=== PATIENT | female | born 1975 ===

== ENCOUNTER 2018-02-08 04:21 | Emergency (ER) | payer MEDICAID, OTHER ==
[2018-02-08 04:22] VITALS: BMI 21.9
--- NOTE | 2018-02-08 05:44 | C.PDOC ---
History Of Present Illness 42 years old female presents to ED with complaints of diffuse abdominal pain. Patient states she feels her "abdomen is hard and full of diarrhea." Patient is a poor historian and she is not answering questions. Time Seen by Provider: 02/08/18 05:04 Chief Complaint (Nursing): Abdominal Pain History Per: Patient History/Exam Limitations: no limitations Onset/Duration Of Symptoms: Hrs Current Symptoms Are (Timing): Still Present Location Of Pain/Discomfort: Diffuse Radiation Of Pain To:: None Quality Of Discomfort: "Pain" Associated Symptoms: denies: Fever, Chills, Nausea, Vomiting, Diarrhea, Urinary Symptoms Exacerbating Factors: None Alleviating Factors: None Recent travel outside of the [place]: No Abnormal Vaginal Bleeding: No Past Medical History Reviewed: Historical Data, Nursing Documentation, Vital Signs Vital Signs: Last Vital Signs Temp 98.0 F 02/08/18 06:53 Pulse 75 02/08/18 06:53 Resp 19 02/08/18 06:53 BP 125/81 02/08/18 06:53 Pulse Ox 100 02/08/18 06:53 - Medical History PMH: Anxiety, Depression, HTN, Schizophrenia - [facility] Procedures GROUP PSYCHOTHERAPY (12/26/17) INDIVIDUAL PSYCHOTHERAPY, SUPPORTIVE (11/22/17) INTRODUCTION OF SERUM/TOX/VACCINE INTO MUSCLE, PERC APPROACH (11/22/17) Family History: States: Unknown Family Hx - Social History Hx Alcohol Use: No Hx Substance Use: No - Immunization History Hx Tetanus Toxoid Vaccination: No Hx Influenza Vaccination: No Hx Pneumococcal Vaccination: No Review Of Systems Except As Marked, All Systems Reviewed And Found Negative. Constitutional: Negative for: Fever, Chills Gastrointestinal: Positive for: Abdominal Pain. Negative for: Nausea, Vomiting , Diarrhea, Constipation Neurological: Negative for: Weakness, Numbness Physical Exam - Physical Exam Appears: Well, Non-toxic, No Acute Distress Skin: Normal Color, Warm, Dry, No Rash Head: Atraumatic, Normacephalic Eye(s): bilateral: Normal Inspection, PERRL, EOMI Oral Mucosa: Moist Throat: No Erythema, No Exudate Neck: Normal ROM, Supple Chest: Symmetrical, No Tenderness Cardiovascular: Rhythm Regular, No Friction Rub, No Murmur Respiratory: Normal Breath Sounds, No Decreased Breath Sounds, No Rales, No Rhonchi, No Wheezing Gastrointestinal/Abdominal: Soft, No Tenderness, No Distention, No Guarding, No Rebound Back: Normal Inspection, No CVA Tenderness Extremity: Normal ROM, No Tenderness, No Swelling Neurological/Psych: Oriented x3, Normal Speech, Normal Cognition, Normal Motor Gait: Steady ED Course And Treatment O2 Sat by Pulse Oximetry: 97 (RA) Pulse Ox Interpretation: Normal Medical Decision Making Medical Decision Making: Ordered Urine culture and Urinalysis. The patient is homeless and wants a place to sleep. On re-exam, the patient reports improvement of symptoms. Lungs are CTA, heart is RRR, abdomen is soft, non-tender and tolerating PO. Pt is Ambulatory in the ED with steady gait. Patient was taken home with another family member, Follow up with the medical doctor within 1-2 days. return if worsened. Disposition - Disposition Referrals: [facility] [Outside] Disposition: HOME/ ROUTINE Disposition Time: 06:31 Condition: GOOD Additional Instructions: Follow up with the medical doctor within 1-2 days, Return if worsened. Prescriptions: Cephalexin [Keflex] 500 mg PO BID #14 capsule Naproxen [Naprosyn] 500 mg PO BID #20 tab Instructions: Acute Abdomen (Belly Pain), Adult (DC) Forms: [employer] (Nepalese) - Clinical Impression Clinical Impression: Abdominal pain, UTI (urinary tract infection) - PA / ADMINISTRATIVE STAFF SUPERVISOR / Resident Statement MD/DO has reviewed & agrees with the documentation as recorded. - Scribe Statement The provider has reviewed the documentation as recorded by the Scribradha Hernandez All medical record entries made by the Ashlynibradha were at my direction and personally dictated by me. I have reviewed the chart and agree that the record accurately reflects my personal performance of the history, physical exam, medical decision making, and the department course for this patient. I have also personally directed, reviewed, and agree with the discharge instructions and disposition.
[2018-02-08 05:56] LABS: SQUAMOUS EPITHIAL 15 /hpf (0-5); URINE BACTERIA RARE (<OCC); URINE BILIRUBIN NEGATIVE (NEGATIVE); URINE BLOOD 1+ (NEGATIVE); URINE CLARITY Hazy (Clear); URINE COLOR Amber (YELLOW); URINE GLUCOSE (UA) NORMAL (Normal); URINE LEUKOCYTE ESTERASE 1+ Leu/uL (Negative); URINE PROTEIN 1+ mg/dL (NEGATIVE)
[2018-02-08 06:55] VITALS: BP 125/81; PULSE 75; RESP 19; TEMP 98
[2018-02-08 20:36] VITALS: O2SAT 97
== END 2018-02-08 07:03 | disposition home or self-care (01) ==
LOC: C.ER 04:21
DX: N39.0 Urinary tract infection, site not specified (principal); R10.84 Generalized abdominal pain

== ENCOUNTER 2018-02-10 15:13 | Emergency (ER) | payer MEDICAID, OTHER ==
[2018-02-10 15:13] VITALS: BMI 21.9
== END 2018-02-10 16:52 | disposition left against medical advice (07) ==
LOC: C.ER 15:13
DX: Z02.89 Encounter for other administrative examinations (principal); R10.9 Unspecified abdominal pain

== ENCOUNTER 2018-02-20 01:57 | Emergency (ER) | payer OTHER ==
[2018-02-20 01:57] VITALS: BMI 23.0
[2018-02-20 02:11] VITALS: O2SAT 98
--- NOTE | 2018-02-20 04:11 | C.PDOC ---
History Of Present Illness Patient is a 42 y/o female with PMHx schizophrenia, Depression, Anxiety, Homelessness presents to the ED with a complaint of insomnia for the last 3 months. Patient requests evaluation. Pt is non compliant to psychiatry follow up and has been seen previously for similar sx. Pt denies suicidal/ homicidal ideations. Denies any fever or chills. No other physical complaints at this time. Time Seen by Provider: 02/20/18 02:41 Chief Complaint (Nursing): Medical Clearance History Per: Patient History/Exam Limitations: no limitations Onset/Duration Of Symptoms: Days (3 months) Current Symptoms Are (Timing): Still Present Recent travel outside of the [place]: No Past Medical History Reviewed: Historical Data, Nursing Documentation, Vital Signs Vital Signs: Last Vital Signs Temp 98.4 F 02/20/18 02:09 Pulse 88 02/20/18 02:09 Resp 22 02/20/18 02:09 BP 104/65 02/20/18 02:09 Pulse Ox 98 02/20/18 04:12 - Medical History PMH: Anxiety, Depression, HTN, Schizophrenia Denies: Diabetes, Hepatitis, HIV, Chronic Kidney Disease, Seizures, Sexually Transmitted Disease Surgical History: No Surg Hx - [facility] Procedures GROUP PSYCHOTHERAPY (12/26/17) INDIVIDUAL PSYCHOTHERAPY, SUPPORTIVE (11/22/17) INTRODUCTION OF SERUM/TOX/VACCINE INTO MUSCLE, PERC APPROACH (11/22/17) Family History: States: No Known Family Hx - Social History Hx Tobacco Use: No Hx Alcohol Use: No Hx Substance Use: No - Immunization History Hx Tetanus Toxoid Vaccination: No Hx Influenza Vaccination: No Hx Pneumococcal Vaccination: No Review Of Systems Review Of Systems: ROS cannot be obtained secondary to pt's inabilty to answer questions. (patient is currently sleeping in ED, turning over to side when asked questions.) Physical Exam - Physical Exam Appears: Well, Non-toxic, No Acute Distress, Other (sleeping) Skin: Normal Color, Warm, Dry Head: Atraumatic, Normacephalic Eye(s): bilateral: Normal Inspection Oral Mucosa: Moist Chest: Symmetrical Cardiovascular: Rhythm Regular, No Murmur Respiratory: Normal Breath Sounds, No Rales, No Rhonchi, No Wheezing Extremity: Normal ROM (x4) Neurological/Psych: Oriented x3, Normal Speech, Normal Cognition ED Course And Treatment O2 Sat by Pulse Oximetry: 98 Pulse Ox Interpretation: Normal Progress Note: Patient has been sleeping soundly since arrival to ER, pt denies any suicidal / homicidal ideation. Pt' s complaints are not emergent at this time. Pt is to be discharged in AM, advised outpt psych follow up. Reevaluation Time: 05:24 Reassessment Condition: Improved Disposition Counseled Patient/Family Regarding: Diagnosis, Need For Followup, Rx Given - Disposition Referrals: [facility] [Outside] Disposition: HOME/ ROUTINE Disposition Time: 05:12 Condition: GOOD Instructions: Schizophrenia (DC) Forms: [employer] (Bahraini) - Clinical Impression Clinical Impression: Schizophrenia, Homeless - Scribe Statement The provider has reviewed the documentation as recorded by the Scribe Charley Damon All medical record entries made by the Scribe were at my direction and personally dictated by me. I have reviewed the chart and agree that the record accurately reflects my personal performance of the history, physical exam, medical decision making, and the department course for this patient. I have also personally directed, reviewed, and agree with the discharge instructions and disposition.
[2018-02-20 06:19] VITALS: BP 112/69; PULSE 81; RESP 20; TEMP 97.6
== END 2018-02-20 06:19 | disposition home or self-care (01) ==
LOC: C.ER 01:57
DX: F20.9 Schizophrenia, unspecified (principal); Z59.0 Homelessness; I10 Essential (primary) hypertension

== ENCOUNTER 2018-02-24 20:02 | Emergency (ER) | payer OTHER ==
[2018-02-24 20:02] VITALS: BMI 23.0
[2018-02-24 20:10] VITALS: BP 112/60; PULSE 92; RESP 20; TEMP 98.3; O2SAT 100
[2018-02-24] MEDS ORDERED: Alum-Mag Hydrox-Simethicone Susp (30 mL) PO STA (20:27)
[2018-02-24] MEDS ORDERED: Alum-Mag Hydrox-Simethicone Susp (30 mL) ONE (20:31)
--- NOTE | 2018-02-24 20:37 | C.PDOC ---
History Of Present Illness 42 year old female presents to the ED c/o constipation. Patient she did not have a bowel movement after using the enema but only liquid came out. Patient is also complaining of heart burn after eating greasy food today. Patient denies fever, chills, nausea, vomit, diarrhea, rash, back pain. Time Seen by Provider: 02/24/18 20:15 Chief Complaint (Nursing): GI Problem History Per: Patient History/Exam Limitations: no limitations Onset/Duration Of Symptoms: Days Current Symptoms Are (Timing): Still Present Recent travel outside of the [place]: No Additional History Per: Patient Past Medical History Reviewed: Historical Data, Nursing Documentation, Vital Signs Vital Signs: Last Vital Signs Temp 98.3 F 02/24/18 20:07 Pulse 92 H 02/24/18 20:07 Resp 20 02/24/18 21:01 BP 112/60 02/24/18 20:07 Pulse Ox 100 02/24/18 22:50 - Medical History PMH: Anxiety, Depression, HTN, Schizophrenia Denies: Diabetes, Hepatitis, HIV, Chronic Kidney Disease, Seizures, Sexually Transmitted Disease Surgical History: No Surg Hx - [facility] Procedures GROUP PSYCHOTHERAPY (12/26/17) INDIVIDUAL PSYCHOTHERAPY, SUPPORTIVE (11/22/17) INTRODUCTION OF SERUM/TOX/VACCINE INTO MUSCLE, PERC APPROACH (11/22/17) Family History: States: Unknown Family Hx - Social History Hx Tobacco Use: No Hx Alcohol Use: No Hx Substance Use: No - Immunization History Hx Tetanus Toxoid Vaccination: No Hx Influenza Vaccination: No Hx Pneumococcal Vaccination: No Review Of Systems Constitutional: Negative for: Fever, Chills Respiratory: Negative for: Shortness of Breath Gastrointestinal: Positive for: Abdominal Pain, Constipation Musculoskeletal: Negative for: Back Pain Skin: Negative for: Rash Neurological: Negative for: Weakness, Numbness Physical Exam - Physical Exam Appears: Non-toxic, No Acute Distress Skin: Normal Color, Warm, Dry Head: Atraumatic, Normacephalic Eye(s): bilateral: Normal Inspection Nose: No Discharge Oral Mucosa: Moist Neck: Normal ROM, Supple Chest: Symmetrical Gastrointestinal/Abdominal: Soft, No Tenderness, No Guarding, No Rebound Back: No CVA Tenderness Extremity: Normal ROM, No Tenderness, No Swelling Neurological/Psych: Oriented x3, Normal Motor, Normal Sensation Gait: Steady ED Course And Treatment O2 Sat by Pulse Oximetry: 100 (On RA) Pulse Ox Interpretation: Normal Progress Note: Plan: - Maalox 30 ml PO. Patient is resting comfortably, and is in no acute distress. Patient was instructed to follow up with PMD in 1-2 days for further evaluation. Disposition Counseled Patient/Family Regarding: Diagnosis, Need For Followup, Rx Given - Disposition Disposition: HOME/ ROUTINE Disposition Time: 20:35 Condition: STABLE Additional Instructions: Please follow up in clinic Eat a high fiber diet Return to ER if worse Prescriptions: Aluminum Hydroxide/Magnesium H [Maalox 30 ml] 30 ml PO TID #100 ml Docusate Sodium [Colace] 100 mg PO BID #20 capsule Instructions: Constipation, Adult (DC) Forms: [employer] (Chinese) - Clinical Impression Clinical Impression: Constipation, Dyspepsia - PA / OCULAR CARE TECHNOLOGIST / Resident Statement MD/DO has reviewed & agrees with the documentation as recorded. - Scribe Statement The provider has reviewed the documentation as recorded by the Scribe Maximiliano Kc All medical record entries made by the Scribe were at my direction and personally dictated by me. I have reviewed the chart and agree that the record accurately reflects my personal performance of the history, physical exam, medical decision making, and the department course for this patient. I have also personally directed, reviewed, and agree with the discharge instructions and disposition.
== END 2018-02-24 21:01 | disposition home or self-care (01) ==
LOC: C.ER 20:02
DX: K59.00 Constipation, unspecified (principal); R10.13 Epigastric pain; I10 Essential (primary) hypertension; F20.9 Schizophrenia, unspecified

== ENCOUNTER 2018-03-23 11:45 | Emergency (ER) | payer OTHER ==
[2018-03-23 11:46] VITALS: BMI 23.0
[2018-03-23] MEDS ORDERED: Albuterol-Ipratrop 3 mg / 0.5 (3 ml) UD IH STA (12:29)
[2018-03-23] MEDS ORDERED: Albuterol 0.083% Inhal Sol (2.5 mg/3 mL) UD INH STA (12:29)
[2018-03-23] MEDS ORDERED: Albuterol 0.083% Inhal Sol (2.5 mg/3 mL) UD ONE (12:37)
[2018-03-23] MEDS ORDERED: Albuterol-Ipratrop 3 mg / 0.5 (3 ml) UD ONE (12:37)
--- NOTE | 2018-03-23 12:43 | C.PDOC ---
History Of Present Illness Patient c/o cold and cough for 3-4 days and constipation for the last 2 days. Patient sts she had prior h/o constipation, was seen here and given Rx for Colace that doesn't work. patient sts she has chest congestion and productive cough with yellow sputum for the last 4 days. patient denies fever. Time Seen by Provider: 03/23/18 11:55 Chief Complaint (Nursing): GI Problem History Per: Patient Onset/Duration Of Symptoms: Days (3-4) Severity: Moderate Past Medical History Reviewed: Historical Data, Nursing Documentation, Vital Signs Vital Signs: Last Vital Signs Temp 98.6 F 03/23/18 14:28 Pulse 79 03/23/18 14:28 Resp 22 03/23/18 14:28 BP 134/87 03/23/18 14:28 Pulse Ox 97 03/23/18 14:40 - Medical History PMH: Anxiety, Depression, HTN, Schizophrenia Denies: Diabetes, Hepatitis, HIV, Chronic Kidney Disease, Seizures, Sexually Transmitted Disease - [facility] Procedures GROUP PSYCHOTHERAPY (12/26/17) INDIVIDUAL PSYCHOTHERAPY, SUPPORTIVE (11/22/17) INTRODUCTION OF SERUM/TOX/VACCINE INTO MUSCLE, PERC APPROACH (11/22/17) Family History: States: Unknown Family Hx - Social History Hx Tobacco Use: No Hx Alcohol Use: No Hx Substance Use: No - Immunization History Hx Tetanus Toxoid Vaccination: No Hx Influenza Vaccination: No Hx Pneumococcal Vaccination: No Review Of Systems Except As Marked, All Systems Reviewed And Found Negative. Physical Exam - Physical Exam Appears: Well, Non-toxic, No Acute Distress Skin: Normal Color, Warm, Dry Head: Atraumatic, Normacephalic Eye(s): bilateral: Normal Inspection Ear(s): Bilateral: Normal Nose: Normal, No Discharge Oral Mucosa: Moist Gingiva: Normal Appearing Throat: No Erythema, No Exudate, No Drooling Neck: Normal ROM, Supple Lymphatic: Normal Exam Chest: Symmetrical, No Tenderness Cardiovascular: Rhythm Regular Respiratory: Wheezing (b/l) Gastrointestinal/Abdominal: Normal Exam, Bowel Sounds, Soft, No Tenderness, No Guarding Back: Normal Inspection, No Vertebral Tenderness, No Paraspinal Tenderness Neurological/Psych: Oriented x3, Normal Speech, Normal Cognition ED Course And Treatment O2 Sat by Pulse Oximetry: 97 - Other Rad Abdomen X-Ray: Viewed By Me, Read By Radiologist Interpretation: Accession No. : [id number]. Patient Name / ID : PRAMOD FREDERICK / [id number]. Exam Date : 03/23/2018 12:31:58 ( Approved ). Study Comment : Sex / Age : F / 42Y. Creator : German Cowan MD. Dictator : German Cowan MD. Trash Truck Driver : Other Sports Official : German Cowan MD. Approver2 : Report Date : 03/23/2018 13:06:11. My Comment : . HISTORY: constipation. COMPARISON: No prior. FINDINGS: BOWEL: Constipation without fecal impaction or obstruction. BONES: Normal. OTHER FINDINGS: None. IMPRESSION: Constipation without fecal impaction or obstruction. No free air visible. CXR X-Ray: Viewed By Me, Read By Radiologist Interpretation: Accession No. : [id number]. Patient Name / ID : PRAMOD FREDERICK / [id number]. Exam Date : 03/23/2018 13:37:12 ( Approved ). Study Comment : Sex / Age : F / 42Y. Creator : German Cowan MD. Dictator : German Cowan MD. Trash Truck Driver : Other Sports Official : German Cowan MD. Approver2 : Report Date : 03/23/2018 14:05:23. My Comment : . HISTORY: cough/wheezing. COMPARISON: No prior. FINDINGS: LUNGS: No active pulmonary disease. PLEURA: No significant pleural effusion identified, no pneumothorax apparent. CARDIOVASCULAR: Normal. OSSEOUS STRUCTURES: No significant abnormalities. VISUALIZED UPPER ABDOMEN: Normal. OTHER FINDINGS: None. IMPRESSION: No active disease. Progress Note: Plan: abdomen/chest xray, Neb treatment, Prednisone po, Zithromax po. On re-evaluation patient feels better, not wheezing appreciated. Patient is stable to be d/c hopme with PMD follow up. Disposition - Disposition Disposition: HOME/ ROUTINE Disposition Time: 14:37 Condition: IMPROVED Additional Instructions: Follow up with your PMD/Clinic within 1-2 days. Return to ED if feel worse. Prescriptions: Lactulose 30 ml PO DAILY PRN #600 ml PRN Reason: Constipation predniSONE [predniSONE Tab] 2 tab PO DAILY #8 tab Albuterol Sulfate [Proair Hfa] 1 puff IH Q6 PRN #1 inh PRN Reason: Cough Azithromycin [Zithromax] 250 mg PO DAILY #4 tab Instructions: Constipation in Adults, Acute Bronchitis Forms: [facility] (Australian) - Clinical Impression Clinical Impression: Bronchitis, Constipation
--- NOTE | 2018-03-23 13:07 | RAD ---
HISTORY: constipation COMPARISON: No prior. FINDINGS: BOWEL: Constipation without fecal impaction or obstruction. BONES: Normal. OTHER FINDINGS: None. IMPRESSION: Constipation without fecal impaction or obstruction. No free air visible.
--- NOTE | 2018-03-23 14:06 | RAD ---
HISTORY: cough/wheezing COMPARISON: No prior. FINDINGS: LUNGS: No active pulmonary disease. PLEURA: No significant pleural effusion identified, no pneumothorax apparent. CARDIOVASCULAR: Normal. OSSEOUS STRUCTURES: No significant abnormalities. VISUALIZED UPPER ABDOMEN: Normal. OTHER FINDINGS: None. IMPRESSION: No active disease.
[2018-03-23 14:29] VITALS: BP 134/87; PULSE 79; RESP 22; TEMP 98.6
[2018-03-23 14:40] VITALS: O2SAT 97
== END 2018-03-23 14:50 | disposition home or self-care (01) ==
LOC: C.ER 11:45
DX: K59.00 Constipation, unspecified (principal); J40 Bronchitis, not specified as acute or chronic; I10 Essential (primary) hypertension; F20.9 Schizophrenia, unspecified